=== PATIENT | female | born 1990 | race Asian ===

== ENCOUNTER 2017-08-13 14:14 | Emergency (ER) | payer OTHER ==
[2017-08-13 14:20] VITALS: BP 126/87
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
== END 2017-08-13 14:57 | disposition home or self-care (01) ==
LOC: ED 14:14
DX: S60.571A Other superficial bite of hand of right hand, initial encounter (principal); Y04.1XXA Assault by human bite, initial encounter; S00.83XA Contusion of other part of head, initial encounter; Y04.2XXA Assault by strike against or bumped into by another person, initial encounter; Y93.F9 Activity, other caregiving; Y99.0 Civilian activity done for income or pay
CPT/HCPCS: 1040M; 99282; 99283

== ENCOUNTER 2017-08-17 10:53 | Emergency (ER) | payer OTHER ==
[2017-08-17] MEDS ORDERED: TETANUS/DIPHTHERIA/PERTUSSIS 0.5 ML SYRINGE IM ONE (12:10)
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
[2017-08-17 12:47] VITALS: BP 118/78
== END 2017-08-17 12:46 | disposition home or self-care (01) ==
LOC: ED 10:53
DX: S40.012A Contusion of left shoulder, initial encounter (principal); S40.011A Contusion of right shoulder, initial encounter; S50.811A Abrasion of right forearm, initial encounter; Y04.2XXA Assault by strike against or bumped into by another person, initial encounter; W50.4XXA Accidental scratch by another person, initial encounter; Y93.F9 Activity, other caregiving; Y92.009 Unspecified place in unspecified non-institutional (private) residence as the place of occurrence of the external cause; Y99.0 Civilian activity done for income or pay; R03.0 Elevated blood-pressure reading, without diagnosis of hypertension; Z23 Encounter for immunization
CPT/HCPCS: 1040M; 90471; 90715; 99282; 99283; 96372